=== PATIENT | female | born 1950 | race Two or more races ===

== ENCOUNTER 2021-07-28 17:53 | Inpatient (IN) | payer OTHER, MEDICAID ==
[~2021-07-28] VITALS: Ht 152.4 cm; Wt 58.8 kg
[2021-07-28 19:40] LABS: Basophils # (auto) 0 10 ^3/uL (0-0.2); Basophils % (auto) 0.9 % (0.0-2.0); Eosinophils # (auto) 0.2 10 ^3/uL (0-0.8); Eosinophils % (auto) 5.5 % (0.0-7.0); Hematocrit 35.5 % (36.0-46.0); Hemoglobin 12.4 g/dL (12.2-16.2); Lymphocytes # (auto) 1.1 10 ^3/uL (0.4-5.4); Lymphocytes % (auto) 29.8 % (10.0-50.0); Mean Corpuscular Hemoglobin 33.7 pg (28.0-32.0); Mean Corpuscular Hgb Conc. 35.1 g/dL (32.0-36.0); Mean Corpuscular Volume 96.1 fL (80.0-100.0); Monocytes # (auto) 0.5 10 ^3/uL (0-1.3); Monocytes % (auto) 15.5 % (0.0-12.0); Neutrophils # (auto) 1.7 10 ^3/uL (1.6-8.6); Neutrophils % (auto) 48.3 % (37.0-80.0); Nucleated Red Blood Cells % 0.1 %; Red Blood Cells 3.69 10^6/uL (4.0-5.20); White Blood Cell 3.5 10^3/uL (4.4-10.8)
[2021-07-28 19:55] LABS: Albumin 3.2 g/dL (3.4-5.0); INR 1.01 (0.9-1.15); Partial Thromboplastin Time 27.9 sec (23.6-33.0); Potassium 4.1 mmol/L (3.5-5.1)
[2021-07-28 19:56] LABS: BUN/Creatinine Ratio 26.3
[2021-07-28 19:58] LABS: Bilirubin, Total 0.3 mg/dL (0.2-1.0); Total Protein 7.4 g/dL (6.4-8.2)
[2021-07-28] MEDS ORDERED: ASPirin 81 mg TAB PO ONE (20:30)
[2021-07-28 21:14] LABS: Urine Bacteria NONE SEEN /hpf (None Seen); Urine Blood Negative /uL (Negative); Urine Specific Gravity 1.014 (1.001-1.035); Urine WBC 4 /hpf (0 - 5)
[2021-07-29 05:15] LABS: Cholesterol 225 mg/dL (< 200)
[2021-07-29 05:17] LABS: HDL Cholesterol 29 mg/dL (40-59); LDL Cholesterol 149 mg/dL (< 100); Triglycerides 239 mg/dL (< 150)
[2021-07-29] MEDS ORDERED: MORPHINE SULFATE INJECTION 2 MG/ML SYRG IV PRN (06:15)
[2021-07-29] MEDS ORDERED: NITROGLYCERIN 0.4 MG SL TAB SL PRN (06:15)
[2021-07-29] MEDS: LEVOTHYROXINE SODIUM 50 MCG TAB PO SCH ×2 (06:37→06:38)
[2021-07-29 08:00] VITALS: BP 107/59
[2021-07-29] MEDS: LISINOPRIL 5 MG TAB PO SCH (08:11)
[2021-07-29] MEDS: ENOXAPARIN SOD 40 MG/0.4 ML SYRINGE SC SCH (08:12)
[2021-07-29] MEDS ORDERED: SODIUM CHLORIDE 0.9% 1,000 ML IV ONE (08:15)
[2021-07-29] MEDS ORDERED: SODIUM CHLORIDE 0.9% 1,000 ML IV SCH (08:15)
[2021-07-29] MEDS ORDERED: ASPirin 81 mg TAB PO SCH (10:00)
[2021-07-29 12:00] VITALS: BP 105/55
[2021-07-29] MEDS: ONDANSETRON HCL 4 MG/2 ML VIAL IV PRN (12:56)
[2021-07-29 16:00] VITALS: BP 111/72
[2021-07-29] MEDS: Ensure Enlive Strawberry 8oz Bottle PO SCH (18:00)
[2021-07-29] MEDS: PANTOPRAZOLE 40 MG/10 ML VIAL INJ IV SCH (21:18)
[2021-07-29] MEDS: ATORVASTATIN 20 MG TAB PO SCH (21:18)
[2021-07-29] MEDS: ACETAMINOPHEN 325 MG TAB PO PRN (21:19)
[2021-07-29 22:00] VITALS: BP 111/45
[2021-07-30 05:00] VITALS: BP 115/54
[2021-07-30 05:47] LABS: Calcium 9.8 mg/dL (8.5-10.1); Potassium 4.3 mmol/L (3.5-5.1)
[2021-07-30] MEDS: ACETAMINOPHEN 325 MG TAB PO PRN (05:47)
[2021-07-30] MEDS: LEVOTHYROXINE SODIUM 50 MCG TAB PO SCH (05:47)
[2021-07-30 05:49] LABS: BUN/Creatinine Ratio 23.9
[2021-07-30 06:02] LABS: Basophils # (auto) 0 10 ^3/uL (0-0.2); Basophils % (auto) 1.3 % (0.0-2.0); Eosinophils # (auto) 0.2 10 ^3/uL (0-0.8); Eosinophils % (auto) 5.5 % (0.0-7.0); Hematocrit 34.4 % (36.0-46.0); Hemoglobin 11.8 g/dL (12.2-16.2); Lymphocytes % (auto) 31.6 % (10.0-50.0); Mean Corpuscular Hemoglobin 33.3 pg (28.0-32.0); Mean Corpuscular Hgb Conc. 34.3 g/dL (32.0-36.0); Monocytes # (auto) 0.5 10 ^3/uL (0-1.3); Monocytes % (auto) 17.6 % (0.0-12.0); Neutrophils # (auto) 1.4 10 ^3/uL (1.6-8.6); Nucleated Red Blood Cells % 0.2 %; Red Blood Cells 3.54 10^6/uL (4.0-5.20); Red Cell Distribution Width 14.2 % (11.8-14.3); White Blood Cell 3.1 10^3/uL (4.4-10.8)
[2021-07-30] MEDS: Ensure Enlive Strawberry 8oz Bottle PO SCH ×3 (08:24→18:44)
[2021-07-30 09:00] VITALS: BP 93/60
[2021-07-30] MEDS: ENOXAPARIN SOD 40 MG/0.4 ML SYRINGE SC SCH (09:54)
[2021-07-30] MEDS: ASPirin-EC 81 mg tab PO SCH (09:54)
[2021-07-30] MEDS: PANTOPRAZOLE 40 MG/10 ML VIAL INJ IV SCH ×2 (09:54→22:48)
[2021-07-30] MEDS: LISINOPRIL 5 MG TAB PO SCH (09:59)
[2021-07-30 13:00] VITALS: BP 100/66
[2021-07-30 17:00] VITALS: BP 104/71
[2021-07-30 20:00] VITALS: BP 109/70
[2021-07-30 22:00] VITALS: BP 109/70
[2021-07-30] MEDS: ATORVASTATIN 20 MG TAB PO SCH (22:48)
[2021-07-31 05:00] VITALS: BP 95/47
[2021-07-31] MEDS: LEVOTHYROXINE SODIUM 50 MCG TAB PO SCH (06:39)
[2021-07-31] MEDS: Ensure Enlive Strawberry 8oz Bottle PO SCH ×3 (08:00→12:32)
[2021-07-31] MEDS ORDERED: SODIUM CHLORIDE LOCK 10 ML ONE (08:27)
[2021-07-31] MEDS ORDERED: LIDOCAINE VISCOUS 2% 15ML UD ONE (08:27)
[2021-07-31] MEDS ORDERED: MIDAZOLAM HCL 5 MG/ML-1ML VIAL ONE (08:28)
[2021-07-31] MEDS ORDERED: fentaNYL CITRATE 100 MCG/2 ML VL ONE (08:28)
[2021-07-31] MEDS ORDERED: diphenhdrAMINE HCL 50 MG/1 ML VL ONE (08:28)
[2021-07-31 09:00] VITALS: BP 111/57
[2021-07-31] MEDS ORDERED: SODIUM CHLORIDE 0.9% 1,000 ML IV ONE (09:30)
[2021-07-31] MEDS: ENOXAPARIN SOD 40 MG/0.4 ML SYRINGE SC SCH (10:00)
[2021-07-31] MEDS: LISINOPRIL 5 MG TAB PO SCH (10:00)
[2021-07-31] MEDS: ASPirin-EC 81 mg tab PO SCH (10:50)
[2021-07-31] MEDS: PANTOPRAZOLE 40 MG/10 ML VIAL INJ IV SCH (10:50)
[2021-07-31] MEDS ORDERED: OME20GT PO (12:00)
[2021-07-31] MEDS ORDERED: OMEP20TA PO (12:21)
[2021-07-31 13:00] VITALS: BP 115/55
[2021-07-31 14:38] VITALS: BP 115/55
[2021-07-31 17:00] VITALS: BP 115/61
[2021-07-31] MEDS: ONDANSETRON HCL 4 MG/2 ML VIAL IV PRN (17:33)
== END 2021-07-31 18:15 | disposition home or self-care (01) | DRG 392 ==
LOC: ER 17:53 → TELE 07-29 06:07 → TELE-WESTW 07-29 08:41
PROVIDERS: ADMIT Nurse Practitioner; ATTEND Internal Medicine
PROC: 0DJ08ZZ Inspection of Upper Intestinal Tract, Via Natural or Artificial Opening Endoscopic (ICD-10-PCS; principal; 2021-07-31 09:15)
DX: K22.2 Esophageal obstruction (principal); C15.9 Malignant neoplasm of esophagus, unspecified; C34.90 Malignant neoplasm of unspecified part of unspecified bronchus or lung; E11.9 Type 2 diabetes mellitus without complications; E78.5 Hyperlipidemia, unspecified; I10 Essential (primary) hypertension; K21.9 Gastro-esophageal reflux disease without esophagitis; E03.9 Hypothyroidism, unspecified; Z20.822 Contact with and (suspected) exposure to COVID-19; R51.9 Headache, unspecified; Z83.3 Family history of diabetes mellitus; Z85.118 Personal history of other malignant neoplasm of bronchus and lung; Z85.01 Personal history of malignant neoplasm of esophagus
CPT/HCPCS: 36415; 43235; 80048; 80053; 80061; 81001; 84443; 84484; 85025; 85610; 85730; 93005; 93306; 96372; 99291; C9113; G0378; J2250; J2405